=== PATIENT | female | born 1975 | race Two or more races ===

== ENCOUNTER 2019-03-06 23:25 | Emergency (ER) | payer SELFPAY ==
[~2019-03-06] VITALS: Ht 160 cm; Wt 76.4 kg
[2019-03-06 23:39] VITALS: Ht 160 cm; Wt 76.4 kg
[2019-03-07 00:22] LABS: UDS - AMPHET NEGATIVE QUAL (NEGATIVE); UDS - BARB NEGATIVE QUAL (NEGATIVE); UDS - BENZO NEGATIVE QUAL (NEGATIVE); UDS - COCAINE NEGATIVE QUAL (NEGATIVE); UDS - OPIATE NEGATIVE QUAL (NEGATIVE); UDS - PCP NEGATIVE QUAL (NEGATIVE); UDS - THC NEGATIVE QUAL (NEGATIVE)
[2019-03-07 00:40] VITALS: BP 120/88
== END 2019-03-07 00:40 | disposition home or self-care (01) ==
LOC: D.ER 23:25
PROVIDERS: Family Medicine
DX: Z13.89 Encounter for screening for other disorder (principal)